=== PATIENT | female | born 1995 | race Caucasian/White ===

== ENCOUNTER 2016-11-26 12:54 | Emergency (ER) | payer BC ==
[2016-11-26 15:24] VITALS: BP 108/53
--- NOTE | 2016-11-26 15:41 | UC ---
Throat Pain/Nasal Tomas HPI - HPI Summary HPI Summary: mild ST, dry cough, malaise, fatigue, fevers for 2d. Roommate sick with same. Did get a flu shot. No rash. NO vomiting. Good appetite. MIld headache - History of Current Complaint Chief Complaint: UCGeneralIllness Stated Complaint: FEVER,THROAT COMPLAINT Time Seen by Provider: 11/26/16 15:15 Hx Obtained From: Patient Hx Last Menstrual Period: 3 wks ago Onset/Duration: Gradual Onset Severity: Mild Cough: Nonproductive Associated Signs & Symptoms: Positive: Dysphagia, Hoarseness - Epiglottits Risk Factors Epiglottis Risk Factors: Negative - Allergies/Home Medications Allergies/Adverse Reactions: Allergies Allergy/AdvReac Type Severity Reaction Status Date / Time almonds Allergy Itching Uncoded 11/26/16 15:20 horse Allergy Eyes Uncoded 11/26/16 15:20 Itchy/Swollen/Red/Watery Home Medications: Home Medications Acetaminophen TAB* [Tylenol TAB*] 650 mg PO Q4H PRN 11/26/16 [History Confirmed 11/26/16] PMH/Surg Hx/FS Hx/Imm Hx Previously Healthy: Yes - Surgical History Surgical History: None - Family History Known Family History: Positive: None - negative for HTN and CAD - Social History Occupation: Student Lives: Alone Alcohol Use: None Substance Use Type: None Smoking Status (MU): Never Smoked Tobacco - Immunization History Most Recent Influenza Vaccination: 07/2015 Review of Systems Constitutional: Chills, Fatigue Skin: Negative Eyes: Negative ENT: Sore Throat, Nasal Discharge Respiratory: Cough Cardiovascular: Negative Gastrointestinal: Negative Genitourinary: Negative Motor: Negative Neurovascular: Negative Musculoskeletal: Myalgia Neurological: Headache, Weakness Psychological: Negative All Other Systems Reviewed And Are Negative: Yes Physical Exam Triage Information Reviewed: Yes Appearance: Well-Appearing, No Pain Distress, Well-Nourished Vital Signs: Initial Vital Signs Temp 98.8 F 11/26/16 15:21 Pulse 100 11/26/16 15:21 Resp 16 11/26/16 15:21 BP 108/53 11/26/16 15:21 Pulse Ox 97 11/26/16 15:21 Vital Signs Reviewed: Yes Eye Exam: Normal ENT Exam: Normal Neck exam: Normal Neck: Positive: Supple, Nontender Respiratory Exam: Normal Respiratory: Positive: Lungs clear, Normal breath sounds, No respiratory distress, No accessory muscle use Musculoskeletal Exam: Normal Neurological Exam: Normal Psychological Exam: Normal Skin Exam: Normal Diagnostics - Laboratory Diagnostic Studies Completed/Ordered: Strep neg Throat Pain/Nasal Course/Dx - Differential Dx/Diagnosis Differential Diagnosis/HQI/PQRI: Pharyngitis, URI Provider Diagnoses: viral URI Discharge - Discharge Plan Condition: Stable Disposition: HOME Prescriptions: Benzonatate CAP* [Tessalon CAP*] 100 mg PO TID PRN #30 cap PRN Reason: Cough Patient Education Materials: Upper Respiratory Infection (ED) Referrals: Non Staff,Doctor [Primary Care Provider] - Additional Instructions: Your Strep test was negative
== END 2016-11-26 15:48 | disposition home or self-care (01) ==
LOC: UCCORT 12:54
DX: J06.9 Acute upper respiratory infection, unspecified (principal)
CPT/HCPCS: 87651; 99211; G0463

== ENCOUNTER 2016-12-08 10:26 | Emergency (ER) | payer BC ==
[2016-12-08 11:00] VITALS: BP 119/65
--- NOTE | 2016-12-08 13:09 | UC ---
Respiratory Complaint HPI - HPI Summary HPI Summary: 2 weeks ago had clinical symptoms of Influenza---seemed to get a little better- but past few days has had green nasal drainage and sputum, feels sort with activities, chest tight - History of Current Complaint Chief Complaint: UCRespiratory Stated Complaint: SINUS COMPLAINT Time Seen by Provider: 12/08/16 13:02 Hx Obtained From: Patient Hx Last Menstrual Period: "the end of September" (denies sexual activity) ?: No Onset/Duration: Sudden Onset, Lasting Days Timing: Constant Severity Initially: Moderate Severity Currently: Moderate Pain Intensity: 5 Pain Scale Used: 0-10 Numeric Character: Cough: Productive Aggravating Factors: Exertion, Deep Breaths Alleviating Factors: Nothing Associated Signs And Symptoms: Positive: Chills, Pleuritic Chest Pain, URI, Nasal Congestion, Sinus Discomfort - Allergies/Home Medications Allergies/Adverse Reactions: Allergies Allergy/AdvReac Type Severity Reaction Status Date / Time almonds Allergy Itching Uncoded 12/08/16 10:56 horse Allergy Eyes Uncoded 12/08/16 10:56 Itchy/Swollen/Red/Watery Home Medications: Home Medications [id number] [VICKS DAYQUIL/NYQUIL COLD (Liquid)] 30 ml PO Q6H PRN 12/08/16 [History Confirmed 12/08/16] PMH/Surg Hx/FS Hx/Imm Hx Previously Healthy: Yes - Surgical History Surgical History: None - Family History Known Family History: Positive: None - negative for HTN and CAD - Social History Occupation: Employed Part-time - [employer], Student Lives: With Family Alcohol Use: None Substance Use Type: None Smoking Status (MU): Never Smoked Tobacco - Immunization History Most Recent Influenza Vaccination: 07/2015 Review of Systems Constitutional: Chills, Fatigue Skin: Negative Eyes: Negative ENT: Ear Ache, Nasal Discharge Respiratory: Cough Cardiovascular: Negative Gastrointestinal: Negative Genitourinary: Negative Motor: Negative Neurovascular: Negative Musculoskeletal: Myalgia Neurological: Negative Psychological: Negative All Other Systems Reviewed And Are Negative: Yes Physical Exam Triage Information Reviewed: Yes Appearance: Well-Nourished, Ill-Appearing - mild, Pain Distress - mild Vital Signs: Initial Vital Signs Temp 98.3 F 12/08/16 10:53 Pulse 80 12/08/16 10:53 Resp 16 02/10/17 10:53 BP 119/65 12/08/16 10:53 Pulse Ox 100 12/08/16 10:53 Vital Signs Reviewed: Yes Eye Exam: Normal Eyes: Positive: Conjunctiva Clear ENT Exam: Normal ENT: Positive: Normal ENT inspection, Hearing grossly normal, Pharynx normal, Nasal congestion, Nasal drainage, TMs normal. Negative: Tonsillar swelling, Tonsillar exudate, Trismus, Muffled/hoarse voice Dental Exam: Normal Neck exam: Normal Neck: Positive: Supple, Nontender, No Lymphadenopathy Respiratory Exam: Normal Respiratory: Positive: Chest non-tender, No respiratory distress, No accessory muscle use, Wheezing Cardiovascular Exam: Normal Cardiovascular: Positive: RRR, No Murmur, Pulses Normal, Brisk Capillary Refill Musculoskeletal Exam: Normal Musculoskeletal: Positive: Strength Intact, ROM Intact, No Edema Neurological Exam: Normal Neurological: Positive: Alert, Muscle Tone Normal Psychological Exam: Normal Skin Exam: Normal UC Diagnostic Evaluation - Laboratory O2 Sat by Pulse Oximetry: 100 Respiratory Course/Dx - Course Course Of Treatment: Albuterol, zithromax, increase fluids, follow with pcp recheck prn - Differential Dx/Diagnosis Differential Diagnosis/HQI/PQRI: Asthma, Bronchitis, Influenza, Lower Resp Infection, Sinusitis Provider Diagnoses: Acute Bronchitis with Bronchospasm Discharge - Discharge Plan Condition: Stable Disposition: HOME Prescriptions: Albuterol HFA INHALER* [Ventolin HFA Inhaler*] 2 puff INH Q4H PRN #1 mdi PRN Reason: cough/chest congestion/sob Azithromycin TAB* [Zithromax TAB (Z-GISELE) 250 mg #6 tabs] 2 tab PO .TODAY, THEN 1 DAILY #1 gisele Spacer/Aerosol-Holding Chamber [Aerochamber Plus] 1 mis .SEE ORDER SEE INSTRUCTIONS #1 mis Patient Education Materials: How to Use a Metered-Dose Inhaler (ED), Acute Bronchitis (ED), Bronchospasm (ED) Forms: *Gen. Provider Communication, *Physical Education Release Referrals: [facility] [place] [facility] [Outside] - If Needed Non Staff,Doctor [Primary Care Provider] -
== END 2016-12-08 13:25 | disposition home or self-care (01) ==
LOC: UCCORT 10:26
DX: J20.8 Acute bronchitis due to other specified organisms (principal); R53.83 Other fatigue; R09.81 Nasal congestion; H92.09 Otalgia, unspecified ear; Y37.90XA Military operations, unspecified, initial encounter; Y99.8 Other external cause status; Z91.018 Allergy to other foods; Z91.09 Other allergy status, other than to drugs and biological substances
CPT/HCPCS: 99212; G0463

== ENCOUNTER 2017-02-22 10:26 | Emergency (ER) | payer BC | END 2017-02-22 12:50 | disposition left against medical advice (07) | LOC: UCCORT 10:26 | DX: J02.9 Acute pharyngitis, unspecified (principal); Z53.21 Procedure and treatment not carried out due to patient leaving prior to being seen by health care provider ==

== ENCOUNTER 2017-02-22 14:14 | Emergency (ER) | payer BC ==
[2017-02-22 14:29] VITALS: BP 102/53
--- NOTE | 2017-02-22 15:31 | UC ---
Throat Pain/Nasal Tomas HPI - HPI Summary HPI Summary: patient has had a sore thraot and fever for 2 days. ibuprofen controlling the fever. - History of Current Complaint Chief Complaint: UCGeneralIllness Stated Complaint: FEVER,SORE THROAT Time Seen by Provider: 02/22/17 15:17 Hx Obtained From: Patient Hx Last Menstrual Period: 01/27/17 Onset/Duration: Sudden Onset, Lasting Days Severity: Moderate Associated Signs & Symptoms: Positive: Dysphagia, Fever - Allergies/Home Medications Allergies/Adverse Reactions: Allergies Allergy/AdvReac Type Severity Reaction Status Date / Time almonds Allergy Itching Uncoded 02/22/17 14:29 horse Allergy Eyes Uncoded 02/22/17 14:29 Itchy/Swollen/Red/Watery Home Medications: Home Medications Ibuprofen [Ibuprofen 200 MG] 200 mg PO DAILY 02/22/17 [History Confirmed ] PMH/Surg Hx/FS Hx/Imm Hx Previously Healthy: Yes - Surgical History Surgical History: None - Family History Known Family History: Positive: None - negative for HTN and CAD Negative: Cardiac Disease, Hypertension - Social History Alcohol Use: None Substance Use Type: None Smoking Status (MU): Never Smoked Tobacco - Immunization History Most Recent Influenza Vaccination: 07/2015 Review of Systems Constitutional: Fever Skin: Negative Eyes: Negative ENT: Sore Throat Respiratory: Negative Cardiovascular: Negative Gastrointestinal: Negative Genitourinary: Negative Motor: Negative Neurovascular: Negative Musculoskeletal: Negative Neurological: Negative Psychological: Negative All Other Systems Reviewed And Are Negative: Yes Physical Exam Triage Information Reviewed: Yes Appearance: Well-Nourished, Ill-Appearing, Pain Distress Vital Signs: Initial Vital Signs Temp 99.0 F 02/22/17 14:24 Pulse 75 02/22/17 14:24 Resp 16 02/22/17 14:24 BP 102/53 02/22/17 14:24 Pulse Ox 99 02/22/17 14:24 Vital Signs Reviewed: Yes Eye Exam: Normal ENT: Positive: Hearing grossly normal, Pharynx normal, TMs normal Dental Exam: Normal Neck exam: Normal Neck: Positive: Supple, Nontender, No Lymphadenopathy Respiratory Exam: Normal Respiratory: Positive: Chest non-tender, Lungs clear, Normal breath sounds Cardiovascular Exam: Normal Cardiovascular: Positive: RRR, Pulses Normal Abdominal Exam: Normal Abdomen Description: Positive: Nontender, No Organomegaly, Soft Bowel Sounds: Positive: Present Musculoskeletal Exam: Normal Musculoskeletal: Positive: Strength Intact, ROM Intact, No Edema Neurological Exam: Normal Neurological: Positive: Alert, Muscle Tone Normal Psychological Exam: Normal Skin Exam: Normal Throat Pain/Nasal Course/Dx - Course Course Of Treatment: hx obtained, exam performed, meds reviewed, rapid strep obtained and is negative. - Differential Dx/Diagnosis Differential Diagnosis/HQI/PQRI: Influenza, Laryngitis, Otitis Media, Pharyngitis, Sinusitis, URI Provider Diagnoses: pharyngitis. fever Discharge - Discharge Plan Condition: Stable Disposition: HOME Patient Education Materials: Pharyngitis (ED) Forms: *School Release Additional Instructions: 1. your strep test was negative 2. Continue with Motrin or tylenol as neede for fever greater than 101. 3. Increase your fluid intake and get plenty of rest.
== END 2017-02-22 15:45 | disposition home or self-care (01) ==
LOC: UCCORT 14:14
DX: J02.9 Acute pharyngitis, unspecified (principal); R50.9 Fever, unspecified
CPT/HCPCS: 87651; 99211; G0463

== ENCOUNTER 2017-07-02 17:01 | Emergency (ER) | payer BC ==
[2017-07-02 17:21] VITALS: BP 120/74
[2017-07-02] MEDS ORDERED: Azithromycin TAB* 250 MG PO ONE (17:26)
[2017-07-02] MEDS ORDERED: Albuterol HFA INHALER* 8 gm MDI INH ONE (17:27)
--- NOTE | 2017-07-02 17:31 | UC ---
Respiratory Complaint HPI - HPI Summary HPI Summary: cough and wheezing for the last 6 days, has had some chills, sinus congestion as well - History of Current Complaint Chief Complaint: UCRespiratory Stated Complaint: COUGH Time Seen by Provider: 07/02/17 17:24 Hx Last Menstrual Period: 06/18/17 - Allergies/Home Medications Allergies/Adverse Reactions: Allergies Allergy/AdvReac Type Severity Reaction Status Date / Time almonds Allergy Itching Uncoded 07/02/17 17:22 horse Allergy Eyes Uncoded 07/02/17 17:22 Itchy/Swollen/Red/Watery PMH/Surg Hx/FS Hx/Imm Hx - Surgical History Surgical History: None - Family History Known Family History: Positive: None - negative for HTN and CAD Negative: Cardiac Disease, Hypertension - Social History Alcohol Use: None Substance Use Type: None Smoking Status (MU): Never Smoked Tobacco - Immunization History Most Recent Influenza Vaccination: no Review of Systems Constitutional: Negative Skin: Negative Eyes: Negative ENT: Sore Throat, Sinus Congestion, Sinus Pain/Tenderness Cardiovascular: Negative Gastrointestinal: Negative Genitourinary: Negative Motor: Negative Neurovascular: Negative Musculoskeletal: Negative Neurological: Negative Psychological: Negative All Other Systems Reviewed And Are Negative: Yes Physical Exam Triage Information Reviewed: Yes Appearance: Well-Nourished, Ill-Appearing, Pain Distress Vital Signs: Initial Vital Signs Temp 98.4 F 07/02/17 17:17 Pulse 81 07/02/17 17:17 Resp 14 07/02/17 17:17 BP 120/74 07/02/17 17:17 Pulse Ox 99 07/02/17 17:17 Eye Exam: Normal ENT: Positive: Pharyngeal erythema, Nasal congestion, Muffled/hoarse voice Dental Exam: Normal Neck exam: Normal Neck: Positive: Supple, Nontender, Enlarged Nodes @ - left vervical Respiratory Exam: Normal Respiratory: Positive: Chest non-tender, No respiratory distress, No accessory muscle use, Wheezing, Inspiration Cardiovascular Exam: Normal Cardiovascular: Positive: RRR, No Murmur, Pulses Normal Abdominal Exam: Normal Abdomen Description: Positive: Nontender, No Organomegaly, Soft Bowel Sounds: Positive: Present Musculoskeletal Exam: Normal Musculoskeletal: Positive: Strength Intact, ROM Intact, No Edema Neurological Exam: Normal Psychological Exam: Normal Skin Exam: Normal UC Diagnostic Evaluation - Laboratory O2 Sat by Pulse Oximetry: 99 Respiratory Course/Dx - Course Course Of Treatment: hx obtained, exam performed, meds reviewed, treated for bronchitis - Differential Dx/Diagnosis Differential Diagnosis/HQI/PQRI: Bronchitis, Exacerbation Of COPD, Laryngitis, Sinusitis Provider Diagnoses: bronchitis. sinusitis Discharge - Discharge Plan Condition: Stable Disposition: AGAINST MEDICAL ADVICE Patient Education Materials: Acute Bronchitis (ED) Additional Instructions: take the medication as prescribed. increase your fluid intake and get plenty of rest follow up if symtpoms are not improving
== END 2017-07-02 17:41 | disposition left against medical advice (07) ==
LOC: UCCORT 17:01
DX: J40 Bronchitis, not specified as acute or chronic (principal); J32.9 Chronic sinusitis, unspecified
CPT/HCPCS: 99212; A9270-GY; G0463

== ENCOUNTER 2017-09-12 17:59 | Emergency (ER) | payer BC ==
--- NOTE | 2017-09-12 19:58 | UC ---
Throat Pain/Nasal Tomas HPI - HPI Summary HPI Summary: 21 YEAR OLD FEMALE PRESENTS WITH COMPLAINS OF SORE THROAT. - History of Current Complaint Stated Complaint: ST Time Seen by Provider: 09/12/17 19:58 Hx Obtained From: Patient Hx Last Menstrual Period: 06/18/17 Onset/Duration: Sudden Onset Severity: Moderate Pain Scale Used: 0-10 Numeric - 4 - Allergies/Home Medications Allergies/Adverse Reactions: Allergies Allergy/AdvReac Type Severity Reaction Status Date / Time almonds Allergy Itching Uncoded 09/12/17 20:00 horse Allergy Eyes Uncoded 09/12/17 20:00 Itchy/Swollen/Red/Watery PMH/Surg Hx/FS Hx/Imm Hx Previously Healthy: Yes - Surgical History Surgical History: None - Family History Known Family History: Positive: None - negative for HTN and CAD Negative: Cardiac Disease, Hypertension - Social History Alcohol Use: None Substance Use Type: None Smoking Status (MU): Never Smoked Tobacco - Immunization History Most Recent Influenza Vaccination: no Review of Systems Constitutional: Negative Skin: Negative Eyes: Negative ENT: Negative, Sore Throat, Nasal Discharge, Sinus Congestion, Sinus Pain/ Tenderness Respiratory: Negative Cardiovascular: Negative Gastrointestinal: Negative Genitourinary: Negative Motor: Negative Neurovascular: Negative Musculoskeletal: Negative Neurological: Negative Psychological: Negative All Other Systems Reviewed And Are Negative: Yes Physical Exam Triage Information Reviewed: Yes Vital Signs Reviewed: Yes Eye Exam: Normal ENT: Positive: Pharyngeal erythema, Nasal congestion, Nasal drainage, Sinus tenderness Dental Exam: Normal Neck exam: Normal Neck: Positive: 1 Respiratory Exam: Normal Cardiovascular Exam: Normal Abdominal Exam: Normal Musculoskeletal Exam: Normal Neurological Exam: Normal Psychological Exam: Normal Skin Exam: Normal Throat Pain/Nasal Course/Dx - Differential Dx/Diagnosis Provider Diagnoses: PHARYNGITIS Discharge - Discharge Plan Condition: Stable Disposition: HOME Prescriptions: Amoxicillin PO (*) [Amoxicillin 875 MG (*)] 875 mg PO BID #14 tab LoraTADine TAB(NF) [Claritin 10 MG TAB(NF)] 10 mg PO DAILY #30 tab Magic M W2 Tristen/Maal/Nyst/Lido* 5 ml SWISH SPIT QID PRN #120 ml PRN Reason: Pain Patient Education Materials: Pharyngitis (ED), Allergic Rhinitis (ED) Forms: *School Release Referrals: Non Staff,Doctor [Primary Care Provider] -
[2017-09-12 20:00] VITALS: BP 111/71
== END 2017-09-12 20:33 | disposition home or self-care (01) ==
LOC: UCCORT 17:59
DX: J02.9 Acute pharyngitis, unspecified (principal)
CPT/HCPCS: 87651; 99212; G0463

== ENCOUNTER 2017-12-07 11:35 | Emergency (ER) | payer BC ==
[2017-12-07 15:13] VITALS: BP 107/56
--- NOTE | 2017-12-07 15:27 | UC ---
Respiratory Complaint HPI - HPI Summary HPI Summary: 21 yo female with 1 1/2 wk hx of runny nose/facial pressure/PND/cough and sore throat no fever fatigue and myalgias no n/v/d - History of Current Complaint Chief Complaint: UCGeneralIllness Stated Complaint: SORE THROAT Time Seen by Provider: 12/07/17 14:44 Hx Obtained From: Patient Hx Last Menstrual Period: 10/17/17 - irregular and not sexually active since last menses Onset/Duration: Gradual Onset Severity Initially: Mild Severity Currently: Mild Pain Intensity: 3 Character: Cough: Nonproductive Associated Signs And Symptoms: Positive: Fever, Chills, Nasal Congestion, Hoarseness, Sinus Discomfort - Allergies/Home Medications Allergies/Adverse Reactions: Allergies Allergy/AdvReac Type Severity Reaction Status Date / Time almond Allergy "My mouth Verified 12/07/17 15:10 gets itchy." PMH/Surg Hx/FS Hx/Imm Hx Previously Healthy: Yes - Surgical History Surgical History: None - Family History Known Family History: Positive: None - negative for HTN and CAD Negative: Cardiac Disease, Hypertension - Social History Alcohol Use: None Substance Use Type: None Smoking Status (MU): Never Smoked Tobacco - Immunization History Most Recent Influenza Vaccination: no Review of Systems Constitutional: Negative Skin: Negative Eyes: Negative ENT: Negative Respiratory: Negative Cardiovascular: Negative Gastrointestinal: Negative Genitourinary: Negative Motor: Negative Neurovascular: Negative Musculoskeletal: Negative Neurological: Negative Psychological: Negative Is Patient Immunocompromised?: No All Other Systems Reviewed And Are Negative: Yes Physical Exam Triage Information Reviewed: Yes Appearance: Well-Appearing, No Pain Distress, Well-Nourished Vital Signs: Initial Vital Signs Temp 98.3 F 12/07/17 15:08 Pulse 73 12/07/17 15:08 Resp 16 12/07/17 15:08 BP 107/56 12/07/17 15:08 Pulse Ox 99 12/07/17 15:08 Vital Signs Reviewed: Yes Eyes: Positive: Conjunctiva Clear ENT: Positive: Hearing grossly normal, Sinus tenderness. Negative: Nasal congestion, Nasal drainage Neck: Positive: Supple, Nontender, No Lymphadenopathy Respiratory: Positive: Lungs clear, Normal breath sounds, No respiratory distress, No accessory muscle use Cardiovascular: Positive: RRR, No Murmur Musculoskeletal: Positive: ROM Intact, No Edema Neurological Exam: Normal Psychological Exam: Normal Skin Exam: Normal UC Diagnostic Evaluation - Laboratory O2 Sat by Pulse Oximetry: 99 Respiratory Course/Dx - Course Course Of Treatment: strep (-) - Differential Dx/Diagnosis Provider Diagnoses: acute sinusitis Discharge - Discharge Plan Condition: Stable Disposition: HOME Prescriptions: Amoxicillin PO (*) [Amoxicillin 875 MG (*)] 875 mg PO BID #20 tab Patient Education Materials: Sinusitis (ED) Forms: *School Release Referrals: Non Staff,Doctor [Primary Care Provider] - Additional Instructions: recheck in 4-5 days if not better
== END 2017-12-07 15:32 | disposition home or self-care (01) ==
LOC: UCCORT 11:35
DX: J01.90 Acute sinusitis, unspecified (principal)
CPT/HCPCS: 87651; 99212; G0463

== ENCOUNTER 2017-12-12 10:08 | Emergency (ER) | payer BC | END 2017-12-12 12:33 | disposition left against medical advice (07) | LOC: UCCORT 10:08 | DX: J02.9 Acute pharyngitis, unspecified (principal); R09.81 Nasal congestion; H93.90 Unspecified disorder of ear, unspecified ear; Z53.21 Procedure and treatment not carried out due to patient leaving prior to being seen by health care provider ==

== ENCOUNTER 2017-12-12 14:22 | Emergency (ER) | payer BC ==
[2017-12-12 17:28] VITALS: BP 110/70
--- NOTE | 2017-12-12 17:48 | UC ---
Respiratory Complaint HPI - HPI Summary HPI Summary: 21 yo female ill for about 2 weeks seen here 4 days ago dx with sinusitis no cough into chest hx bronchitis ans nebulizer /mdi use - History of Current Complaint Chief Complaint: UCRespiratory Stated Complaint: RE-CHECK THROAT,CHEST CONGESTION Time Seen by Provider: 12/12/17 16:53 Hx Last Menstrual Period: 12/09/17 Pain Intensity: 33 - Allergies/Home Medications Allergies/Adverse Reactions: Allergies Allergy/AdvReac Type Severity Reaction Status Date / Time almond Allergy "My mouth Verified 12/12/17 17:27 gets itchy." Home Medications: Home Medications Ibuprofen 200 mg PO 12/12/17 [History] PMH/Surg Hx/FS Hx/Imm Hx Previously Healthy: Yes Respiratory History: Asthma, Bronchitis, Pneumonia - Surgical History Surgical History: None - Family History Known Family History: Positive: None - negative for HTN and CAD, Respiratory Disease Negative: Cardiac Disease, Hypertension - Social History Alcohol Use: None Substance Use Type: None Smoking Status (MU): Never Smoked Tobacco - Immunization History Most Recent Influenza Vaccination: no Review of Systems Constitutional: Negative Skin: Negative Eyes: Negative ENT: Sore Throat, Nasal Discharge, Sinus Congestion, Sinus Pain/Tenderness Respiratory: Cough Cardiovascular: Negative Gastrointestinal: Negative Genitourinary: Negative Motor: Negative Neurovascular: Negative Musculoskeletal: Negative Neurological: Negative Psychological: Negative Is Patient Immunocompromised?: No All Other Systems Reviewed And Are Negative: Yes Physical Exam Triage Information Reviewed: Yes Appearance: Well-Appearing, No Pain Distress, Well-Nourished Vital Signs: Initial Vital Signs Temp 98.7 F 12/12/17 17:21 Pulse 66 12/12/17 17:21 Resp 20 12/12/17 17:21 BP 110/70 12/12/17 17:21 Pulse Ox 100 12/12/17 17:21 Eyes: Positive: Conjunctiva Clear ENT: Positive: Pharyngeal erythema, Nasal congestion, Nasal drainage, Sinus tenderness, Uvula midline. Negative: Trismus, Muffled voice, Hoarse voice, Dental tenderness Neck: Positive: Supple, Nontender, No Lymphadenopathy Respiratory: Positive: Normal breath sounds, No respiratory distress, No accessory muscle use, Wheezing - with forced expiration Cardiovascular: Positive: RRR, No Murmur Musculoskeletal: Positive: ROM Intact, No Edema Neurological: Positive: Alert Psychological Exam: Normal Skin Exam: Normal UC Diagnostic Evaluation - Laboratory O2 Sat by Pulse Oximetry: 100 - normal/not hypoxic Respiratory Course/Dx - Differential Dx/Diagnosis Provider Diagnoses: acute bronchitis with bronchospasm. sinusitis Discharge - Discharge Plan Condition: Stable Disposition: HOME Prescriptions: predniSONE [Deltasone] 40 mg PO DAILY #8 tab Patient Education Materials: Acute Bronchitis (ED) Referrals: Non Staff,Doctor [Primary Care Provider] - Additional Instructions: continue amox use inhaler as directed recheck in 4-5 days if not better
[2017-12-12] MEDS ORDERED: Albuterol HFA INHALER* 8 gm MDI INH ONE (17:55)
[2017-12-12] MEDS ORDERED: predniSONE TAB* 20 MG PO ONE (17:55)
== END 2017-12-12 18:02 | disposition home or self-care (01) ==
LOC: UCCORT 14:22
DX: Z51.89 Encounter for other specified aftercare (principal); J20.9 Acute bronchitis, unspecified; J32.9 Chronic sinusitis, unspecified
CPT/HCPCS: 87502; 99202; A9270-GY; G0463; J7512

== ENCOUNTER 2018-07-24 13:30 | Emergency (ER) | payer BC ==
[2018-07-24 14:22] VITALS: BP 108/68
--- NOTE | 2018-07-24 14:28 | UC ---
General HPI - HPI Summary HPI Summary: Patient is complaining of a four-day history of sinus pressure, runny nose and cough. She denies any associated fever, shortness of breath or wheezing but notes that this will often progressed to bronchitis. She states she has nebulizer at home for when she gets bronchitis because she will often wheeze but doesn't have it here at school. She denies any history of asthma. - History of Current Complaint Stated Complaint: SINUS COMPLAINT/ST Time Seen by Provider: 07/24/18 14:21 Hx Obtained From: Patient Hx Last Menstrual Period: 12/09/17 Onset/Duration: Gradual Onset Timing: Constant Aggravating: Nothing Associated Signs & Symptoms: Positive: Cough - Allergy/Home Medications Allergies/Adverse Reactions: Allergies Allergy/AdvReac Type Severity Reaction Status Date / Time almond Allergy "My mouth Verified 07/24/18 14:23 gets itchy." Home Medications: Home Medications D-Methorphan/PE/Acetaminophen [Vicks Dayquil Cold & Flu] 2 cap PO Q6H PRN [History Confirmed 07/24/18] Ibuprofen TAB* [Advil TAB*] 600 mg PO Q6H PRN 07/24/18 [History Confirmed ] PMH/Surg Hx/FS Hx/Imm Hx - Additional Past Medical History Additional PMH: Sinusitis, deviated septum from nasal fracture, allergies Respiratory History: Bronchitis - Surgical History Surgical History: None - Family History Known Family History: Positive: None - negative for HTN and CAD, Respiratory Disease Negative: Cardiac Disease, Hypertension - Social History Occupation: Student Lives: Dormitory/Roommates Alcohol Use: None Substance Use Type: None Smoking Status (MU): Never Smoked Tobacco - Immunization History Most Recent Influenza Vaccination: no Vaccination Up to Date: Yes Review of Systems Constitutional: Negative Skin: Negative Eyes: Negative ENT: Nasal Discharge, Sinus Congestion, Sinus Pain/Tenderness Respiratory: Shortness Of Breath Cardiovascular: Negative Gastrointestinal: Negative Genitourinary: Negative Motor: Negative Neurovascular: Negative Musculoskeletal: Negative Neurological: Negative Psychological: Negative Is Patient Immunocompromised?: No All Other Systems Reviewed And Are Negative: Yes Physical Exam Triage Information Reviewed: Yes Appearance: Well-Appearing Vital Signs Reviewed: Yes Eyes: Positive: Conjunctiva Clear ENT: Positive: Pharynx normal, Nasal congestion, TMs normal. Negative: Nasal drainage, Sinus tenderness Neck: Positive: Supple, Nontender, No Lymphadenopathy Respiratory: Positive: Lungs clear, Normal breath sounds Cardiovascular: Positive: RRR, No Murmur Abdomen Description: Positive: Nontender, No Organomegaly, Soft Bowel Sounds: Positive: Present Musculoskeletal: Positive: ROM Intact Neurological: Positive: Alert Psychological: Positive: Age Appropriate Behavior Skin Exam: Normal Course/Dx - Course Course Of Treatment: Nothing to suggest bacterial infection. I have recommended a nasal decongestant spray such as Afrin but strongly advised that this should only be used for 3 days and then discontinued. I have also recommended nasal steroid spray such as Flonase which she should use per label. If refilled her albuterol and inhaler since she does not have her nebulizer here at school. Recommended close follow-up for recheck and recheck immediately for change or worsening. - Differential Dx - Multi-Symptom Provider Diagnoses: URI. Cough Discharge - Sign-Out/Discharge Documenting (check all that apply): Patient Departure All imaging exams completed and their final reports reviewed: No Studies - Discharge Plan Condition: Stable Disposition: HOME Prescriptions: Albuterol HFA INHALER* [Ventolin HFA Inhaler*] 2 puff INH Q6H PRN #1 mdi PRN Reason: Wheezing Patient Education Materials: Upper Respiratory Infection (ED), Acute Cough (ED) Referrals: [facility] [Outside] - 5 Days Additional Instructions: CONSIDER A NASAL DECONGESTANT SUCH AFRIN. USE PER LABEL X 3 DAYS THEN STOP. CONSIDER FLONASE PER LABEL. - Billing Disposition and Condition Condition: STABLE Disposition: Home
== END 2018-07-24 14:38 | disposition home or self-care (01) ==
LOC: UCCORT 13:30
DX: J06.9 Acute upper respiratory infection, unspecified (principal); J34.2 Deviated nasal septum; Z91.018 Allergy to other foods
CPT/HCPCS: 99212; G0463

== ENCOUNTER 2019-01-01 17:04 | Emergency (ER) | payer BC ==
[2019-01-01 19:18] VITALS: BP 100/75
--- NOTE | 2019-01-01 19:36 | UC ---
Respiratory Complaint HPI - HPI Summary HPI Summary: Pt c/o cough, chest congestion that began 1 week. Pt denies fever, chills, wheezing or SOB. Pt denies hx of asthma. Pt has been taking OTC symptom management medication with temporary relief of symptoms. - History of Current Complaint Chief Complaint: UCRespiratory Stated Complaint: CONGESTION Time Seen by Provider: 01/01/19 19:31 Hx Obtained From: Patient Hx Last Menstrual Period: 11/22/18 ?: No Onset/Duration: Sudden Onset, Lasting Days, Still Present Timing: Constant Severity Initially: Mild Severity Currently: Mild Pain Intensity: 0 Character: Cough: Nonproductive Aggravating Factors: Deep Breaths, Recumbent Position Alleviating Factors: Nothing - Risk Factors Pulmonary Embolism Risk Factors: Negative Cardiac Risk Factors: Negative Pseudomonas Risk Factors: Negative Tuberculosis Risk Factors: Negative - Allergies/Home Medications Allergies/Adverse Reactions: Allergies Allergy/AdvReac Type Severity Reaction Status Date / Time almond Allergy "My mouth Verified 01/01/19 19:15 gets itchy." Home Medications: Home Medications Amphetamine MIXED SALT TAB* [Adderall TAB*] 20 mg BID 01/01/19 [History Confirmed 01/01/19] PMH/Surg Hx/FS Hx/Imm Hx Previously Healthy: Yes - Surgical History Surgical History: None - Family History Known Family History: Positive: None - negative for HTN and CAD, Respiratory Disease Negative: Cardiac Disease, Hypertension - Social History Occupation: Student Lives: Dormitory/Roommates Alcohol Use: None Substance Use Type: None Smoking Status (MU): Never Smoked Tobacco Have You Smoked in the Last Year: No - Immunization History Most Recent Influenza Vaccination: no Vaccination Up to Date: Yes Review of Systems All Other Systems Reviewed And Are Negative: Yes Constitutional: Positive: Negative Skin: Positive: Negative Eyes: Positive: Negative ENT: Positive: Negative Respiratory: Positive: Cough Cardiovascular: Positive: Negative Gastrointestinal: Positive: Negative Genitourinary: Positive: Negative Motor: Positive: Negative Neurovascular: Positive: Negative Musculoskeletal: Positive: Negative Neurological: Positive: Negative Psychological: Positive: Negative Is Patient Immunocompromised?: No Physical Exam Triage Information Reviewed: Yes Appearance: Well-Appearing Vital Signs: Initial Vital Signs Temp 98.6 F 01/01/19 19:16 Pulse 71 01/01/19 19:16 Resp 14 01/01/19 19:16 BP 100/75 01/01/19 19:16 Pulse Ox 99 01/01/19 19:16 Vital Signs Reviewed: Yes Eye Exam: Normal ENT Exam: Normal Dental Exam: Normal Neck exam: Normal Respiratory Exam: Normal Musculoskeletal Exam: Normal Neurological Exam: Normal Psychological Exam: Normal Skin Exam: Normal Respiratory Course/Dx - Differential Dx/Diagnosis Differential Diagnosis/HQI/PQRI: Bronchitis, Influenza Provider Diagnosis: Viral syndrome Discharge - Sign-Out/Discharge Documenting (check all that apply): Patient Departure All imaging exams completed and their final reports reviewed: No Studies - Discharge Plan Condition: Stable Disposition: HOME Prescriptions: Albuterol HFA INHALER* [Ventolin HFA Inhaler*] 1 - 2 puff INH Q6H PRN #1 mdi PRN Reason: Sob/Wheezing Benzonatate CAP* [Tessalon 100 MG CAP*] 200 mg PO Q8H PRN #30 cap PRN Reason: Cough predniSONE TAB* [Deltasone 20 MG TAB*] 20 mg PO DAILY #4 tab Patient Education Materials: Viral Syndrome (ED) Referrals: [facility] [Outside] - If Needed No Primary Care Phys,NOPCP [Primary Care Provider] - - Billing Disposition and Condition Condition: STABLE Disposition: Home
== END 2019-01-01 19:45 | disposition home or self-care (01) ==
LOC: UCCORT 17:04
DX: B34.9 Viral infection, unspecified (principal); R05 Cough; R09.89 Other specified symptoms and signs involving the circulatory and respiratory systems; Z91.018 Allergy to other foods
CPT/HCPCS: 99212; G0463

== ENCOUNTER 2019-09-13 13:12 | Emergency (ER) | payer BC ==
[2019-09-13 13:38] VITALS: BP 99/61
--- NOTE | 2019-09-13 14:05 | UC ---
Minor Trauma HPI - HPI Summary HPI Summary: Pt presents with c/o left hand pain and nose deformity/swelling after playing in a rugby match yesterday and having another player step on left hand and getting tackled by another player. Pt denies epistaxis, but reports that she can not "get air through left nostril" and c/o left hand pain and swelling. - History of Current Complaint Chief Complaint: UCUpperExtremity Stated Complaint: NASAL INJURY Time Seen by Provider: 09/13/19 13:34 Hx Obtained From: Patient Hx Last Menstrual Period: 09/11/19 ?: No Onset/Duration: Sudden Onset, Still Present Onset Of Pain: Immediate Severity Initially: Moderate Severity Currently: Mild Pain Intensity: 6 Mechanism Of Injury: Blunt Trauma, Direct Blow Aggravating Factor(s): Movement Alleviating Factor(s): Rest Associated Signs And Symptoms: Positive: Ecchymosis, Swelling Related History: Positive: Diagnosed As - nasal fracture - Risk Factors Compartment Syndrome Risk Factors: Pain - Allergies/Home Medications Allergies/Adverse Reactions: Allergies Allergy/AdvReac Type Severity Reaction Status Date / Time almond Allergy "My mouth Verified 09/13/19 13:32 gets itchy." PMH/Surg Hx/FS Hx/Imm Hx Previously Healthy: Yes - Surgical History Surgical History: None - Family History Known Family History: Positive: None - negative for HTN and CAD, Respiratory Disease Negative: Cardiac Disease, Hypertension - Social History Occupation: Student Lives: Dormitory/Roommates Alcohol Use: Occasionally Substance Use Type: None Smoking Status (MU): Never Smoked Tobacco Have You Smoked in the Last Year: No - Immunization History Most Recent Influenza Vaccination: no Vaccination Up to Date: Yes Review of Systems All Other Systems Reviewed And Are Negative: Yes Constitutional: Positive: Negative Skin: Positive: Bruising Eyes: Positive: Negative ENT: Positive: Other - nasal swelling Respiratory: Positive: Negative Cardiovascular: Positive: Negative Gastrointestinal: Positive: Negative Genitourinary: Positive: Negative Motor: Positive: Decreased ROM - left hand Neurovascular: Positive: Negative Musculoskeletal: Positive: Arthralgia, Decreased ROM, Edema, Myalgia Neurological: Positive: Headache Psychological: Positive: Negative Is Patient Immunocompromised?: No Physical Exam Triage Information Reviewed: Yes Appearance: Well-Appearing Vital Signs: Initial Vital Signs Temp 99.4 F 09/13/19 13:33 Pulse 61 09/13/19 13:33 Resp 16 09/13/19 13:33 BP 99/61 09/13/19 13:33 Pulse Ox 100 09/13/19 13:33 Vital Signs Reviewed: Yes Eyes: Positive: Other: - left eye with some ecchymosis under eye ENT: Positive: Other - bridge of nose swelling and mild ecchymosis, appearance of slight deformity of nasal bridge Dental Exam: Normal Neck exam: Normal Respiratory: Positive: No respiratory distress Musculoskeletal: Positive: ROM Limited @ - left hand, Edema @ - left hand mid metacarpal 4 & 5 Neurological Exam: Normal Psychological Exam: Normal Skin Exam: Other - bruising to nasal bridge and left hand Diagnostics - Radiology No standard instances Radiology Interpretation Completed By: Radiologist - Merit System Director: Chad Lala ([id number]) Construction Ironworker Helper: TIFF ([email or web address]) Report Date: 2018 14:19:00 Report Status: Final ======= Start of Report Content Patient Name: SHERRON STOKES Medical Record#: [id number] Ordering Physician: Faby Pierson RESOURCE PROTECTION SPECIALIST Acct.#: [id number] : 1995 Age: 23 Sex: F Location: [facility] Exam Date: 09/13/19 1344 ADM Status: REG ER Order Information: NASAL BONES 3+ VWS Accession Number: [id number] CPT: 06119 INDICATION: Trauma to the nose playing rugby TECHNIQUE: 3 views of the nasal bones were obtained including lateral and Mcdowell views. FINDINGS: No fracture is seen. Paranasal sinuses appear clear by radiographic standards. IMPRESSION: No evidence of acute fracture. <Electronically signed by Chad Lala MD in OV> 09/13/191415 Dictated By: Chad Lala MD Dictated Date/Time: 09/13/191415 Transcribed Date/ Time: 09/13/191415 Copy to: CC:Margaux Manzano MD; Faby Pierson NP; No Primary Care Phys,NOPCP Imaging - [facility] Imaging [facility] Imaging - [facility] [address] [place] [id number] [address] [address] ph ([phone]) ph ([phone]) ph ([phone]) ==== End of Report Content Merit System Director: Chad Lala, ([id number]) Construction Ironworker Helper: TIFF, ([id number]) Report Date: 09/13/2019 14:19:00 Report Status: Final Start of Report Content Patient Name: SHERRON STOKES Medical Record#: [id number] Ordering Physician: Faby Pierson RESOURCE PROTECTION SPECIALIST Acct.#: [id number] : 1995 Age: 23 Sex: F Location: [facility] Exam Date: 09/13 1344 ADM Status: REG ER Order Information: HAND - LEFT MINIMUM 3 VIEWS Accession Number: [id number] CPT: 41819 INDICATION: Cleat versus third and fourth metacarpals during rugby match COMPARISON: None. TECHNIQUE: 4 views of the left hand were obtained. FINDINGS: The adequately corticated bones are in normal alignment. No significant focal osseous abnormality or fracture is seen. Joint spaces appear maintained. IMPRESSION: Normal left hand radiograph. If the patient's symptoms persist, follow-up imaging is recommended. <Electronically signed by Chad Lala MD in OV> 09/13/191414 Dictated By: Chad Lala MD Dictated Date/Time: 09/13/191414 Transcribed Date/Time: 09/13/191414 Copy to: CC:Margaux Manzano MD; Faby Pierson RESOURCE PROTECTION SPECIALIST; No Primary Care Phys,NOPCP Imaging - [facility] Imaging - [facility] Imaging - [facility] [address] [place] [address] [place] [address] ph ([phone]) ph ([phone]) ph ([phone]) End of Report Content Minor Trauma Course/Dx - Differential Dx/Diagnosis Differential Diagnosis/HQI/PQRI: Contusion(s), Fracture Provider Diagnosis: Contusion of nose, Contusion of left hand Discharge ED - Sign-Out/Discharge Documenting (check all that apply): Patient Departure All imaging exams completed and their final reports reviewed: Yes - Discharge Plan Condition: Stable Disposition: HOME Patient Education Materials: Nasal Contusion (ED), Crush Injury (ED) Referrals: [facility] [Outside] Israel Lua MD [Medical Doctor] - No Primary Care Phys,NOPCP [Primary Care Provider] - - Billing Disposition and Condition Condition: STABLE Disposition: Home
== END 2019-09-13 14:34 | disposition home or self-care (01) ==
LOC: UCCORT 13:12
DX: S60.222A Contusion of left hand, initial encounter (principal); S00.33XA Contusion of nose, initial encounter; W50.0XXA Accidental hit or strike by another person, initial encounter; W03.XXXA Other fall on same level due to collision with another person, initial encounter; Y93.63 Activity, rugby; Y92.9 Unspecified place or not applicable; Z91.018 Allergy to other foods
CPT/HCPCS: 70160; 99211; G0463